=== PATIENT | male | born 1940 | race Caucasian/White ===

== ENCOUNTER 2016-03-29 13:21 | Emergency (ER) | payer MEDICARE, OTHER ==
--- NOTE | 2016-03-29 14:21 | ERPHSYRPT ---
- History of Present Illness Time Seen by Provider: 03/29/16 14:16 Source: patient Exam Limitations: other (dementia) Patient Subjective Stated Complaint: daughter states has had sob for two weeks. seen by and was given steroid shot one week ago. seen at [facility] today and isn't getting any better. Triage Nursing Assessment: to room per w/c. skin w/d, color pale, resp slightly labored and audible congestion heard in throat. nonprod cough noted. rhonchi and rales heard throughout. Physician History: Patient is a 75-year-old male brought in by his daughter from [facility] where he was seen today for shortness of breath for 2 weeks. He was given a steroid injection one week ago but has not been getting better. She when I interview the patient, the daughter is no longer in the room. The patient has dementia and is a poor historian. He states he said shortness of breath without a cough for 2 days. He denies shortness of breath when he sleeps flat on his back. He also states that he takes no medicines at all. However this is not true. He does take a number of medicines including Namenda for dementia. Timing/Duration: week(s) (2) Activities at Onset: none Severity of Dyspnea-Max: moderate Severity of Dyspnea-Current: moderate Possible Cause: occasional episodes Modifying Factors: Improves With: activity Associated Symptoms: denies symptoms Allergies/Adverse Reactions: No Known Drug Allergies Allergy (Verified 03/29/16 13:57) Home Medications: Olmesartan Medoxomil [Benicar] 40 mg PO DAILY 02/27/13 [History] Amlodipine Besylate 10 mg [Norvasc 10 MG] 10 mg HS 10/06/13 [History] Pravastatin Sodium 40 mg PO HS 10/06/13 [History] Apixaban [Eliquis] 5 mg PO BID 02/06/16 [History] Donepezil HCl 10 mg [Aricept 10 MG] 10 mg PO DAILY 02/06/16 [History] Memantine HCl [Namenda] 10 mg PO BID 02/06/16 [History] Spironolactone 50 mg PO DAILY 02/06/16 [History] Timolol Maleate [Timolol Maleate 0.5%] 1 drop OP BID 02/06/16 [History] Bumetanide 1 mg [Bumex 1 mg] 1 mg PO DAILY 03/29/16 [History] Fexofenadine HCl [Caitlyn] 180 mg PO DAILY 03/29/16 [History] Levothyroxine Sodium 150 Mcg [Synthroid 150 Mcg] 150 mcg PO DAILY 03/29/16 [History] Metoprolol Succinate [Toprol Xl] 50 mg PO DAILY 03/29/16 [History] Hx Tetanus, Diphtheria Vaccination/Date Given: No Hx Influenza Vaccination/Date Given: Yes (2015) Hx Pneumococcal Vaccination/Date Given: Yes (2015) - Review of Systems Constitutional: No Fever, No Chills Eyes: No Symptoms Ears, Nose, & Throat: No Symptoms Respiratory: Dyspnea Cardiac: No Chest Pain, No Edema, No Syncope Abdominal/Gastrointestinal: No Abdominal Pain, No Nausea, No Vomiting, No Diarrhea Genitourinary Symptoms: No Dysuria Musculoskeletal: No Back Pain, No Neck Pain Skin: No Rash Neurological: No Dizziness, No Focal Weakness, No Sensory Changes Psychological: No Symptoms Endocrine: No Symptoms Hematologic/Lymphatic: No Symptoms Immunological/Allergic: No Symptoms All Other Systems: Reviewed and Negative - Past Medical History Pertinent Past Medical History: Yes Neurological History: Alzheimer's Disease ENT History: No Pertinent History Cardiac History: Coronary Artery Disease, Hypertension, Other Respiratory History: No Pertinent History Endocrine Medical History: Hypothyroidism Musculoskeletal History: No Pertinent History GI Medical History: No Pertinent History History: No Pertinent History Male Reproductive Disorders: No Pertinent History Other Medical History: THROAT CA, non hodgins lymphoma - Past Surgical History Past Surgical History: Yes Neuro Surgical History: No Pertinent History Cardiac: Pacemaker Respiratory: No Pertinent History Gastrointestinal: No Pertinent History Genitourinary: Other Musculoskeletal: No Pertinent History - Social History Smoking Status: Never smoker Exposure to second hand smoke: No Drug Use: none Patient Lives Alone: No Significant Family History: no pertinent family hx - Nursing Vital Signs Nursing Vital Signs: Initial Vital Signs Temperature 98.1 F Temperature Source Oral Pulse Rate 61 Respiratory Rate 22 Blood Pressure 142/90 Pain Intensity 0 - Physical Exam General Appearance: no apparent distress, alert Eye Exam: PERRL/EOMI Neck Exam: normal inspection, supple Respiratory Exam: crackles/rales, rhonchi Cardiovascular/Chest Exam: normal heart sounds, regular rate/rhythm Abdominal/Gastrointestinal Exam: soft, No tenderness, No distention, No mass Rectal Exam: not done Extremity Exam: pedal edema (2+) Neurologic Exam: cooperative, other (demantia) Skin Exam: normal color, warm, No dry SpO2 Interpretation: hypoxic SpO2: 87 Oxygen Delivery: Room Air - Course EKG Interpreted by Me: Other (paced rhythm) - Radiology Exams Chest X-ray Interpretation: Interpreted by me, Infiltrates (RLL) Ordered Tests: Active Orders 24 hr Category Date Time Status EKG-ER Only STAT Care 03/29/16 14:23 Active IV Insertion STAT Care 03/29/16 14:23 Active CHEST 2 VIEWS (PA AND LAT) Stat Exams 03/29/16 14:23 Taken CBC W DIFF Stat Lab 03/29/16 13:50 Completed CMP Stat Lab 03/29/16 13:50 Completed NT PRO BNP Stat Lab 03/29/16 13:50 Completed TROPONIN Stat Lab 03/29/16 13:50 Completed Medication Summary Discontinued Medications Generic Name Dose Route Start Last Admin Trade Name Freq PRN Reason Stop Dose Admin Furosemide 40 mg 03/29/16 14:23 03/29/16 14:39 Lasix 40 Mg/4 Ml IV 03/29/16 14:24 40 mg STAT ONE Administration Furosemide Confirm 03/29/16 14:30 Lasix 40 Mg/4 Ml Administered 03/29/16 14:31 Dose 40 mg .ROUTE .STK-MED ONE Lab/Rad Data: Laboratory Result Diagrams 03/29/16 13:50 03/29/16 13:50 Laboratory Results 03/29/16 03/29/16 Range/Units 13:50 13:50 WBC 7.4 (4.0-10.5) K/mm3 RBC 4.87 (4.1-5.6) M/mm3 Hgb 13.4 (12.5-18.0) gm/dl Hct 43.2 (42-50) % MCV 88.7 (78-100) fl MCH 27.5 (26-32) pg MCHC 31.0 L (32-36) g/dl RDW 16.3 H (11.5-14.0) % Plt Count 188 (150-450) K/mm3 MPV 10.4 H (6-9.5) fl Gran % 81.9 H (36.0-66.0) % Lymphocytes % 9.3 L (24.0-44.0) % Monocytes % 5.9 (0.0-12.0) % Eosinophils % 2.6 (0.00-5.0) % Basophils % 0.3 (0.0-0.4) % Basophils # 0.02 (0-0.4) Sodium 143 (136-145) mEq/L Potassium 4.4 (3.5-5.1) mEq/L Chloride 105 (98-107) mEq/L Carbon Dioxide 32.1 H (21-32) mEq/L Anion Gap 10.6 (5-15) MEQ/L BUN 27 H (9-20) mg/dL Creatinine 1.23 (0.55-1.30) mg/dl Estimated GFR > 60 ML/MIN Glucose 133 H (70-110) MG/DL Calcium 8.6 (8.5-10.1) mg/dL Total Bilirubin 0.7 (0.2-1.0) mg/dL AST 22 (15-37) U/L ALT 18 (12-78) U/L Alkaline Phosphatase 81 (46-116) U/L Troponin I 0.079 H* (0.000-0.056) ng/ml NT-Pro-B Natriuret Pep 510 H (0-450) pg/ml Serum Total Protein 7.1 (6.4-8.2) gm/dL Albumin 3.6 (3.4-5.0) g/dL - Progress Progress: unchanged Air Movement: fair Blood Culture(s) Obtained: Yes Antibiotics given: Yes Discussed with DrJaylin: Other (Dr Arroyo [facility]) Counseled pt/family regarding: lab results, diagnosis, rad results - Departure Time of Disposition: 15:22 Departure Disposition: Transfer (Transfer to [facility] per Dr Arroyo and Dr De La Cruz) Clinical Impression: Elevated troponin I level, Pulmonary infiltrate in right lung on chest x-ray Condition: Fair Critical Care Time: No Referrals: ANGELA MASTERS [Primary Care Provider] -
[2016-03-29] MEDS ORDERED: Lasix 40 MG/4 ML IV ONE (14:23)
[2016-03-29] MEDS ORDERED: Lasix 40 MG/4 ML ONE (14:30)
[2016-03-29 14:47] LABS: BASOPHIL % 0.3 % (0.0-0.4); Eosinophil % 2.6 % (0.00-5.0); Granulocytes % 81.9 % (36.0-66.0); Lymphocytes % 9.3 % (24.0-44.0); Mean Cell Volume 88.7 fl (78-100); Mean Corpuscular Hemoglobin 27.5 pg (26-32); Mean Platelet Volume 10.4 fl (6-9.5); Monocytes % 5.9 % (0.0-12.0); Platelet Count 188 K/mm3 (150-450); Red Blood Count 4.87 M/mm3 (4.1-5.6); Red Cell Distribution Width 16.3 % (11.5-14.0); White Blood Count 7.4 K/mm3 (4.0-10.5)
[2016-03-29 14:58] LABS: ALBUMIN 3.6 g/dL (3.4-5.0); ALKALINE PHOSPHATASE 81 U/L (46-116); ANION GAP 10.6 MEQ/L (5-15); BILIRUBIN,TOTAL 0.7 mg/dL (0.2-1.0); BLOOD UREA NITROGEN 27 mg/dL (9-20); CHLORIDE 105 mEq/L (98-107); Carbon Dioxide 32.1 mEq/L (21-32); Glucose 133 MG/DL (70-110); Potassium 4.4 mEq/L (3.5-5.1); SGOT/AST 22 U/L (15-37); SGPT/ALT 18 U/L (12-78); SODIUM 143 mEq/L (136-145); Total Protein 7.1 gm/dL (6.4-8.2)
[2016-03-29 15:09] LABS: TROPONIN 0.079 ng/ml (0.000-0.056)
[2016-03-29] MEDS ORDERED: ROCEPHIN 1 Gm-D5w 50 ml Bag** 50 ML IV ONE ×2 (16:15→16:19)
[2016-03-29 16:52] VITALS: BP 166/62; PULSE 60; O2SAT 166
--- NOTE | 2016-03-29 20:09 | XRAY ---
Indication: Short of breath. Comparison: February 07, 2016 PA/lateral chest demonstrates new right lower lobe infiltrate/atelectasis without consolidation or large effusion. Remaining left lung and heart unremarkable with stable right-sided dual-lead pacemaker.
== END 2016-03-29 18:14 | disposition short-term general hospital (02) ==
LOC: ED 13:21
DX: R79.89 Other specified abnormal findings of blood chemistry (principal); R91.8 Other nonspecific abnormal finding of lung field; F03.90 Unspecified dementia, unspecified severity, without behavioral disturbance, psychotic disturbance, mood disturbance, and anxiety; I10 Essential (primary) hypertension; Z79.899 Other long term (current) drug therapy
CPT/HCPCS: 36000; 36415; 71020; 80053; 83880; 84484; 85025; 87040; 93005; 96360; 96365; 96374; 99284; J0696; J1940